=== PATIENT | female | born 1990 | race African-American/Black ===

== ENCOUNTER 2024-06-28 13:26 | Outpatient (CLI) | payer MEDICAID, SELFPAY | END 2024-06-28 13:27 | disposition home or self-care (01) | PROVIDERS: Visit Provider Registered Nurse | DX: Z34.92 Encounter for supervision of normal pregnancy, unspecified, second trimester (principal); Z3A.17 17 weeks gestation of pregnancy | CPT/HCPCS: 86762; 86787 ==

== ENCOUNTER 2024-07-18 13:36 | Outpatient (CLI) | payer MEDICAID, SELFPAY ==
--- NOTE | 2024-07-18 14:00 | CRLHL7_ITS ---
For Patients: As a result of the Century Cures Act, medical imaging exams and procedure reports are released immediately into your electronic medical record. You may view this report before your referring provider. If you have questions, please contact your health care provider. OBSTETRICAL ULTRASOUND 07/18/2024 VIC by LMP: 12/02/2024. GA: 20 w, 3 d. INDICATION: anatomy. TECHNIQUE: Real time clemons scale imaging of the fetus was performed. Transvaginal. Position: Vertex. Cervix: Visualized. Technique: Transvaginal. Length of closed cervix: 3.9 cm. Placenta/cord: Posterior, Right Wall. Technique: Transvaginal. Placenta tip to internal OS: 3.4 cm. Placenta insertion: Central. Amniotic Fluid: 5.4cm SDP (greater than/equal to: 2- less than 8 cm). SURVEY: Observed Structures. Cerebellum: 2.3 cm, 22 w 3 d. Cisterna Magna: 6.6 mm. Nuchal Fold: 3.5 mm. Lateral Ventricle: 8.0 mm. CSP: Yes. Midline Falx: Yes. Choroid Plexus: Yes. Spine: C-spine (see comments) Abdomen: Stomach: Yes. Abd Cord Insertion: Yes. Urinary Bladder: (see comments) Kidneys: Yes. Diaphragm: Yes. Face: Nose/lips: Yes. Orbital view: Yes. Profile: Yes. Limbs: Upper Extremities: Yes. Lower Extremities: Yes. Hands: Yes. Feet: Yes. Vascular: 4-Chamber Heart: Yes. LVOT: Yes. RVOT: Yes. 3VV: Yes. 3VTV: Yes. BPD: 5.4 cm. 22 w, 3 d, >97 percent. HC: 19.8 cm. 22 w, 0 d, 93.8 percent. AC: 16.4 cm. 21 w, 3 d, 75.5 percent. FL: 3.8 cm. 22 w, 0 d, 88.2 percent. FL/AC ratio: 22.97 percent. HC/AC ratio: 1.21. heart rate: 131 bpm. age by this US: 22 w, 0 d. VIC by this US: 11/21/2024. EFW: 445.79 g. Weight: 1 lbs, 0 oz. Percentile by VIC: >97 percent. TECH COMMENTS: Suboptimal C-spine. 3VC and bladder not documented today. Very difficult exam due to positioning. EFW >97%. IMPRESSION: 1. Sonographic gestational age 22 weeks 0 days and sonographic due date 11/21/2024. Sonographic age 11 days ahead of the clinical age. 2. Estimated weight greater than 97th percentile. Abdominal circumference 76 percent. Biparietal diameter greater than 97th percentile. 3. Incomplete visualization of the cervical spine, umbilical cord and urinary bladder. Remainder of the anatomic survey is normal given limitations of position. Short-term follow-up recommended in 1-2 weeks. Don Blanchard M.D. Diagnostic Radiologist [email or web address] DOT/lilli DW/Dictated by: Don Blanchard MD @ 07/20/2024 6:49:00 AM (Electronically Signed)
== END 2024-07-18 13:37 | disposition home or self-care (01) ==
LOC: US 13:37
PROVIDERS: Visit Provider Registered Nurse
DX: Z34.92 Encounter for supervision of normal pregnancy, unspecified, second trimester (principal); Z3A.22 22 weeks gestation of pregnancy
CPT/HCPCS: 76805; 76817

== ENCOUNTER 2024-08-01 12:33 | Outpatient (CLI) | payer MEDICAID, SELFPAY ==
--- NOTE | 2024-08-01 13:00 | CRLHL7_ITS ---
For Patients: As a result of the Cures Act, medical imaging exams and procedure reports are released immediately into your electronic medical record. You may view this report before your referring provider. If you have questions, please contact your health care provider. OB ULTRASOUND VIC by LMP: 12/02/2024. GA: 22 w, 3 d. Single. Comparison: 07/18/2024. INDICATION: Follow-up missing views (three-vessel cord, bladder, cervical spine). TECHNIQUE: Real time grayscale imaging of the fetus was performed. Transabdominal. CERVIX: Not visualized. POSITIONING: Vertex. AMNIOTIC FLUID: 4.7 cm SDP (N: greater than 2 x 1 cm) PLACENTA: Technique: Transabdominal. PLACENTA POSITION: Posterior, right wall. DOPPLER: heart rate: 149 bpm. IMPRESSION: Normal three-vessel cord, bladder, and spine. In conjunction with the prior study, the anatomic survey is normal. Don Blanchard M.D. Diagnostic Radiologist [email or web address] DOT/mariana peña/Dictated by: Don Blanchard MD @ 08/02/2024 10:14:00 AM (Electronically Signed)
== END 2024-08-01 12:34 | disposition home or self-care (01) ==
LOC: US 12:34
PROVIDERS: Visit Provider Advanced Practice Midwife
DX: Z36.2 Encounter for other antenatal screening follow-up (principal); Z3A.22 22 weeks gestation of pregnancy
CPT/HCPCS: 76816

== ENCOUNTER 2024-09-11 13:32 | Outpatient (CLI) | payer MEDICAID, SELFPAY | END 2024-09-11 13:33 | disposition home or self-care (01) | LOC: NFLDREF 09-15 07:06 | PROVIDERS: PCP Emergency Medicine; Referring Provider Emergency Medicine; Visit Provider Midwife | DX: Z34.93 Encounter for supervision of normal pregnancy, unspecified, third trimester (principal); Z3A.28 28 weeks gestation of pregnancy | CPT/HCPCS: 86592 ==

== ENCOUNTER 2024-09-12 14:51 | Outpatient (CLI) | payer MEDICAID, SELFPAY ==
--- NOTE | 2024-09-12 15:45 | CRLHL7_ITS ---
For Patients: As a result of the Century Cures Act, medical imaging exams and procedure reports are released immediately into your electronic medical record. You may view this report before your referring provider. If you have questions, please contact your health care provider. OB ULTRASOUND VIC by LMP: 12/02/2024. GA: 28 w, 3 d. Single. Comparison: 08/01/2024, 07/18/2024. INDICATION: Measuring large for date. TECHNIQUE: Real time grayscale imaging of the fetus was performed. Transabdominal. CERVIX: Not visualized. POSITIONING: Vertex. AMNIOTIC FLUID: 4.8 cm. SDP (N: greater than 2 x 1 cm) PLACENTA: Technique: Transabdominal. PLACENTA POSITION: Not provided. DOPPLER: heart rate: 147 bpm. BIOMETRY: BPD: 7.9 cm. 31 w, 5 d, >97 percent. HC: 29.3 cm. 32 w, 2 d, >97 percent. AC: 27.5 cm. 31 w, 4 d, >97 percent. FL: 5.5 cm. 29 w, 0 d, 53.8 percent. FL/AC ratio: 20.03 percent. HC/AC ratio: 1.07. EFW: 1660 g. Weight: 3 lbs, 11 oz. age by this US: 31 w, 1 d. VIC by this US: 11/13/2024. Percentile by VIC: >97 percent. IMPRESSION: 1. Sonographic gestational age 31 weeks 1 day and sonographic due date 11/13/2024. Sonographic age is 19 days ahead of the clinical age. 2. Estimated weight greater than 97th percentile. Biparietal diameter, head circumference, and abdominal circumference all greater than 97th percentile. Don Blanchard M.D. Diagnostic Radiologist [email or web address] DOT/mariana peña/Dictated by: Don Blanchard MD @ 09/12/2024 4:11:00 PM (Electronically Signed)
== END 2024-09-12 14:52 | disposition home or self-care (01) ==
LOC: US 14:52
PROVIDERS: PCP Emergency Medicine; Visit Provider Advanced Practice Midwife
DX: O36.63X0 Maternal care for excessive fetal growth, third trimester, not applicable or unspecified (principal); Z3A.28 28 weeks gestation of pregnancy
CPT/HCPCS: 76816

== ENCOUNTER 2024-09-24 11:22 | Outpatient (RCR) | payer MEDICAID, SELFPAY ==
--- NOTE | 2024-09-12 12:33 | URNOTE ---
Prior auth is not required for Infed ([id number]) per [facility]'s Medical Injectable Drug list.
--- NOTE | 2024-09-12 14:23 | URNOTE ---
Diagnosis: Iron deficiency anemia in
[2024-09-24 11:34] VITALS: BP 127/68; PULSE 98; RESP 20; TEMP 35.8; O2SAT 99
[2024-09-24] MEDS: SODIUM CHLORIDE 0.9 % (FLUSH) 10 ML SYRINGE IVF (12:00)
[2024-09-24] MEDS: IRON DEXTRAN COMPLEX 25 MG in 0.9 % SODIUM CHLORIDE 100 ml 100 ML 402 MG IVPB (12:18)
[2024-09-24 12:40] VITALS: BP 106/62; PULSE 91; RESP 14; O2SAT 97
[2024-09-24] MEDS: IRON DEXTRAN COMPLEX 975 MG in 0.9 % SODIUM CHLORIDE 250 ml 250 ML 270 MG IVPB (13:17)
== END 2025-03-23 23:59 | disposition home or self-care (01) ==
LOC: CCIC 11:22
PROVIDERS: PCP Emergency Medicine; Referring Provider Emergency Medicine; Visit Provider Clinical Nurse Specialist
DX: O99.013 Anemia complicating pregnancy, third trimester (principal); D50.9 Iron deficiency anemia, unspecified
CPT/HCPCS: 96365; 96366; J1750; J7050

== ENCOUNTER 2024-10-08 12:05 | Outpatient (CLI) | payer MEDICAID, SELFPAY ==
--- NOTE | 2024-10-08 12:15 | CRLHL7_ITS ---
For Patients: As a result of the Century Cures Act, medical imaging exams and procedure reports are released immediately into your electronic medical record. You may view this report before your referring provider. If you have questions, please contact your health care provider. OBSTETRICAL ULTRASOUND ??? FOLLOW-UP, 10/08/2024 INDICATION: Elevated BMI. CLINICAL HISTORY: VIC by LMP: 12/02/2024 Gestational Age: 32 weeks 1 day COMPARISON: 09/12/2024, 08/01/2024, 07/18/2024 TECHNIQUE: Real-time clemons-scale transabdominal imaging of the fetus was performed. FINDINGS: Fetus: Single Cervix: Not visualized positioning: Vertex Amniotic Fluid: 7.0 cm SDP Placenta technique: Transabdominal Placenta position: Posterior, right wall heart rate: 125 bpm BIOMETRY: BPD: 8.7 cm, 35 weeks 0 days, greater than 97% HC: 31.4 cm, 35 weeks 1 day, 87.7% AC: 28.4 cm, 32 weeks 3 days, 58.3% FL: 6.5 cm, 33 weeks 3 days, 73.4% FL/AC Ratio: 22.84% HC/AC ratio: 1.10 EFW: 2153 grams; 4 lbs. 12 oz. age by this ultrasound: 34 weeks 0 days VIC by this ultrasound: 11/19/2024 Percentile by VIC: 75.1% TIRE BALANCER COMMENTS: Very difficult to obtain BPD, HC and AC due to positioning. Bilateral renal pelvis measured and within normal limits. IMPRESSION: 1. Sonographic gestational age 34 weeks 0 days and sonographic due date 11/19/2024. Sonographic age is 13 days ahead of the clinical age. 2. Estimated weight is 75th percentile. Abdominal circumference is 58th percentile. BPD is greater than 97th percentile. 3. Right renal pelvis measures 5 mm and left renal pelvis measures 2 mm, considered within normal limits. DON OROSCO M.D. Diagnostic Radiologist [email or web address] Transcribed: 4:[address]/Dictated by: Don Orosco MD @ 10/08/2024 4:05:00 PM (Electronically Signed)
== END 2024-10-08 12:06 | disposition home or self-care (01) ==
LOC: US 12:06
PROVIDERS: PCP Emergency Medicine; Visit Provider Midwife
DX: O99.213 Obesity complicating pregnancy, third trimester (principal); O36.63X0 Maternal care for excessive fetal growth, third trimester, not applicable or unspecified; Z3A.32 32 weeks gestation of pregnancy
CPT/HCPCS: 76816

== ENCOUNTER 2024-10-22 14:10 | Outpatient (CLI) | payer MEDICAID, SELFPAY | END 2024-10-22 14:11 | disposition home or self-care (01) | LOC: NFLDREF 10-25 04:19 | PROVIDERS: PCP Emergency Medicine; Referring Provider Emergency Medicine; Visit Provider Midwife | DX: O09.93 Supervision of high risk pregnancy, unspecified, third trimester (principal); Z3A.34 34 weeks gestation of pregnancy | CPT/HCPCS: 82728 ==

== ENCOUNTER 2024-11-05 12:53 | Outpatient (CLI) | payer MEDICAID, SELFPAY ==
--- NOTE | 2024-11-05 13:00 | CRLHL7_ITS ---
For Patients: As a result of the Century Cures Act, medical imaging exams and procedure reports are released immediately into your electronic medical record. You may view this report before your referring provider. If you have questions, please contact your health care provider. OB ULTRASOUND LMP: 02/26/2024. VIC by LMP: 12/02/2024. GA: 36 w, 1 d. Single. Comparison: 10/08/2024, 09/12/2024, 08/01/2024. INDICATION: Elevated BMI. TECHNIQUE: Real time grayscale imaging of the fetus was performed. Transabdominal. CERVIX: Not visualized. POSITIONING: Vertex. AMNIOTIC FLUID: 4.1 cm. SDP (N: greater than 2 x 1 cm) PLACENTA: Technique: Transabdominal. PLACENTA POSITION: Right wall. DOPPLER: heart rate: 152 bpm. BIOMETRY: BPD: 9.4 cm. 38 w, 0 d, 95 percent. HC: 34.4 cm. 39 w, 5 d, 94 percent. AC: 34.4 cm. 38 w, 2 d, >97 percent. FL: 6.9 cm. 35 w, 2 d, 25 percent. FL/AC ratio: 20.0 percent. HC/AC ratio: 1.0. EFW: 326 g. Weight: 7 lbs, 4 oz. age by this US: 37 w, 6 d. VIC by this US: 11/20/2024. Percentile by VIC: 89.4 percent. IMPRESSION: 1. Sonographic gestational age 37 weeks 6 days and sonographic due date 11/20/2024. Sonographic age 12 days ahead of the clinical age. 2. Estimated weight 89th percentile. Abdominal circumference greater than 97th percentile. Don Blanchard M.D. Diagnostic Radiologist [email or web address] DOT/mariana peña/Dictated by: Don Blanchard MD @ 11/05/2024 3:48:00 PM (Electronically Signed)
== END 2024-11-05 12:54 | disposition home or self-care (01) ==
LOC: US 12:54
PROVIDERS: PCP Emergency Medicine; Visit Provider Midwife
DX: O99.213 Obesity complicating pregnancy, third trimester (principal); O36.63X0 Maternal care for excessive fetal growth, third trimester, not applicable or unspecified; Z3A.36 36 weeks gestation of pregnancy
CPT/HCPCS: 76816

== ENCOUNTER 2024-11-05 14:22 | Outpatient (CLI) | payer MEDICAID, SELFPAY ==
[2024-11-07 00:02] LABS: Strep B DNA Probe POSITIVE (Negative)
[2024-11-07 01:45] LABS: Strep B Susceptibility Needed? No
== END 2024-11-05 14:23 | disposition home or self-care (01) ==
LOC: NFLDREF 14:22
PROVIDERS: PCP Emergency Medicine; Visit Provider Advanced Practice Midwife
DX: O09.93 Supervision of high risk pregnancy, unspecified, third trimester (principal); Z3A.36 36 weeks gestation of pregnancy
CPT/HCPCS: 87081; 87653

== ENCOUNTER 2024-11-13 13:22 | Outpatient (CLI) | payer MEDICAID, SELFPAY ==
[2024-11-13 13:42] VITALS: BP 122/68; PULSE 77; PULSE 79; O2SAT 100
--- OUTSIDE RECORDS SUMMARY | 2024-11-13 13:43 | XMS_ITS | Encounter Summary ---
Author Organization [facility] Address [address] [place] [address]. [place] [address] Care Team Providers Care Principal Engineer Name Role Phone [place] [facility] Medical Primary Care Provider Masoud Marcano MD Unavailable + [phone] Masoud Marcano MD Unavailable + [phone] Isamar Dobbins APRN MEAT CUTTING BLOCK REPAIRER Unavailable [phone] Masoud Marcano MD Unavailable + [phone] Isamar Dobbins APRN MEAT CUTTING BLOCK REPAIRER Unavailable + [phone] Encounter Details Date Type Department Care Team (Late st Contact Info) Description 05/03/[address] 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 Gender Identity Not on file Sexual Orientation Not on file documented as of this encounter Plan of Treatment Not on file documented as of this encounter Visit Diagnoses Not on filedocumented in this encounter Additional Health Concerns Assessment Noted Time PHQ-9 Depression Total Score: 0 01/03/20 10:31 AM CDT documented as of this encounter Care Teams Principal Engineer Relationship Specialty Start Date End Date Center - [facility] [address] [place] [address] PCP - General Clinic 06/30/16 Masoud Marcano MD [address] [place] [address] PCP - Assigned PCP 11/30/17 07/24/18 Masoud Marcano MD [address] [place] [address] Assigned PCP 11/30/17 12/29/18 Isamar Dobbins APRN MEAT CUTTING BLOCK REPAIRER [address] [place] [address] Assigned PCP 12/30/18 03/16/19 Masoud Marcano MD [address] [place] [address] Assigned PCP 03/17/19 12/26/20 Isamar Dobbins APRN MEAT CUTTING BLOCK REPAIRER [address] [place] [address] Assigned PCP 12/27/20 03/20/21 documented as of this encounter
--- OUTSIDE RECORDS SUMMARY | 2024-11-13 13:43 | XMS_ITS | Clinical Summary ---
Author Organization [facility] Address [address] [place] [address]. [place] [address] Care Team Providers Care Environmental Assistant Name Role Phone [place] [facility] Primary Care Provider Allergies No known active allergies Medications desonide (DESOWEN) 0.05 % ointmentIndicati ons:Eczema, unspecified type Apply sparingly to affected area three times daily as needed. 60 g 8 Active fluticasone (FLOVENT DISKUS) 100 MCG/BLIST AEPBIndications: Moderate persistent asthma without complication Inhale 1 puff into the lungs 2 times daily 1 Inhaler 11 8 Active ibuprofen (ADVIL/MOTRIN) 600 MG tabletIndication s:S/P dilation and curettage,Status post hysteroscopy Take 1 tablet (600 mg) by mouth every 6 hours as needed for other (mild and/or inflammatory pain) 30 tablet 1 8 Active Additional Information Patient not taking.Reported on 04/06/2018 fluticasone (FLOVENT DISKUS) 250 MCG/BLIST AEPB InhalerIndicatio ns:Moderate persistent asthma without complication Inhale 1 puff into the lungs 2 times daily 1 Inhaler 11 8 Active order for DMEIndications:M oderate persistent asthma without complication Equipment being ordered: Nebulizer 1 Units 8 Active albuterol (2.5 MG/3ML) 0.083% neb solutionIndicati ons:Moderate persistent asthma without complication Take 1 vial (2.5 mg) by nebulization every 6 hours as needed for shortness of breath / dyspnea or wheezing 25 vial 11 8 Active predniSONE (DELTASONE) 20 MG tabletIndication s:Moderate persistent asthma without complication Take 1 tablet (20 mg) by mouth daily 5 tablet 8 Active Additional Information Patient not taking.Reported on 04/06/2018 levonorgestrel (MIRENA) 20 MCG/24HR IUDIndications:E ncounter for IUD insertion 1 each (20 mcg) by Intrauterine route continuous 8 Active norgestimate-eth inyl estradiol (ORTHO-CYCLEN, 28,) 0.25-35 MG-MCG per tabletIndication s:Breakthrough bleeding on depo provera Take 1 tablet by mouth daily 84 tablet 2 8 Active albuterol (PROAIR HFA/PROVENTIL HFA/VENTOLIN HFA) 108 (90 Base) MCG/ACT inhalerIndicatio ns:Moderate persistent asthma without complication Inhale 2 puffs into the lungs every 6 hours as needed for shortness of breath / dyspnea or wheezing 1 Inhaler 3 9 Active Active Problems Problem Noted Date Diagnosed Date Mirena IUD 04/06/2018 Overview (04/06/2018): Lot:[id number] Exp: 07/2020 Rachel Newell LPN Moderate persistent asthma without complication 01/01/2018 Iron deficiency anemia secon brian to inadequate dietary iron intake 06/02/2016 Resolved Problems Problem Noted Date Diagnosed Date Resolved Date (spontaneous vaginal delivery) 11/20/2016 08/07/2017 Encounter for triage in patient 11/12/2016 08/07/2017 Pain in symphysis pubis during 09/15/2016 02/06/2017 Abnormal ultrasound 07/01/2016 History of 06/02/2016 018 Overview (10/25/2016): History of History of f-[id number] Records reviewed and scanned: LOW TRANSVERSE SECTION confirmed approved by [facility] care, subsequent 05/25/2016 08/07/2017 Overview (10/06/2016): 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, 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, cell free DNA normal, declined amniocentesis Immunizations Immunization Administration Dates Next Due Influenza Vaccine >6 months,quad, PF 06/02/2016 MMR (MMRII) 11/21/2016 TDAP Vaccine (Adacel) 09/08/2016 Family History Medical History Relation Comments Diabetes Father Diabetes Paternal Grandmother Relation Status Comments Daughter 1 Alive Daughter 2 Alive Father Maternal Grandfather Paternal Grandmother Social History Tobacco Use Types Packs/Day Years Used Date Smoking Tobacco: Never Smokeless Tobacco: Never Tobacco Cessation:Counseling Given: No Alcohol Use Standard Drinks/Week Comments No 0 (1 standard drink = 0.6 oz pur e alcohol) PHQ-2 Answer Date Recorded PHQ-2 Score 0 02/09/2018 Adolescent Education Answer Date Record ed Getting School Help Needed Not on file 10/12 Comments No Sex and Gender Information Value Date Recorded Sex Assigned at Not on file Legal 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 Gender Identity Not on file Sexual Orientation Not on file Last Filed Vital Signs Vital Sign Reading Time Taken Comments Blood Pressure 160/101 10/13/2023 8:18 AM CDT Pulse 82 10/13/2023 8:18 AM CDT Temperature 37 C (98.6 F) 10/13/2023 8:18 AM CDT Respiratory Rate 16 10/13/2023 8:18 AM CDT Oxygen Saturation 100% 10/13/2023 8:18 AM CDT Inhaled Oxygen Concentration - - Weight 95.1 kg (209 lb 9.6 oz) 04/06/2018 4:04 P M DOT ETCHER Height 175.3 cm (5' 9) 05/09/2018 1:36 AM DOT ETCHER Body Mass Index 30.95 04/06/2018 4:04 PM DOT ETCHER Plan of Treatment Health Maintenance Due Date Last Done Comments ADVANCE CARE PLANNING 1990 ANNUAL REVIEW OF HM ORDERS 1990 HEPATITIS C SCREENING 2008 HEPATITIS B VACCINE (1 of 3 - 19+ 3-dose series) 2009 PNEUMOCOCCAL VACCINE: PEDIATRICS (0 to 5 YEARS) AND AT-RISK PATIENTS (6 to 49 YEARS) (1 of 2 - PCV) 2009 ASTHMA CONTROL TEST 06/27/2018 12/25/2017, 12/25/2017, 10/10/2017, Additional history exists ASTHMA ACTION PLAN 03/26/2019 03/26/2018 YEARLY PREVENTIVE VISIT 06/10/2021 06/10/19, 01/25/2019, 09/06/2018 PAP 06/10/2023 06/10/2020, 03/0 09/2019, 06/02/2016 COVID-19 VACCINE ( season) 2024 06/01/2021, 10/05/2020, 09/02/2020 PHQ-2 (once per calendar year) 2024 02/09/2018, 01/02/2017 INFLUENZA VACCINE (Season Ended) 2025 06/02/2016 DTAP/TDAP/TD VACCINE (2 - Td or Tdap) 09/08/2026 09/08/2016 ZOSTER VACCINE (1 of 2) 2040 HIV SCREENING Completed 06/02/2016 HPV VACCINE Aged Out No longer eligi ble based on patient's age to complete this topic MENINGITIS VACCINE Aged Out No longer eligible based on patient's age to complete this topic Procedures Procedure Name Priority Date/Time Associated Diagnosis Comments HIV ANTIGEN ANTIBODY COMBO Routine 06/02/2016 10:24 AM DOT ETCHER care, subsequent , second trimester PAP IMAGED THIN LAYER SCREEN Routine 06/02/2016 12:00 AM DOT ETCHER care, subsequent , second trimester from Last 3 Months or Most Recently Relevant to Health Maintenance Results * HIV Antigen Antibody Combo (06/02/2016 10:24 AM DOT ETCHER) HIV Antigen Antibody Combo Nonreactive HIV-1 p24 Ag & HIV-1/HIV-2 Ab Not Detected NR [facility] Blood specimen (specimen) 06/02/2016 10:24 AM DOT ETCHER 06/02/2016 10:26 AM DOT ETCHER us Nicolette Yu MD LAB - BLOOD OR DERABLES Final Result [facility] [address] [place] [address] * Pap imaged thin layer screen reflex to HPV if ASCUS - recommend age 25 - 29 (06/02/2016 12:00 AM DOT ETCHER) PRABHA Carbajal Report Patient Name: ZULEMA BROWNING MR#: [id number] Specimen #: [id number] Collected: 06/02/2016 Received: 06/02/2016 Reported: 06/05/2016 10:27 Ordering Phy(s): NICOLETTE YU For improved result formatting, select 'View Enhanced Report Format' under Linked Documents section. SPECIMEN/STAIN PROCESS: Pap imaged thin layer prep screening (Surepath, FocalPoint with guided screening) Pap-Cyto x 1, Pap with reflex to HPV if ASCUS x 1 SOURCE: Cervical, endocervical Pap imaged thin layer prep screening (Surepath, FocalPoint with guided screening) SPECIMEN ADEQUACY: Satisfactory for evaluation. -Transformation zone component present. CYTOLOGIC INTERPRETATION: Negative for Intraepithelial Lesion or Malignancy Electronically signed out by: STEPHANE Cain (ASCP) Processed and screened at [facility] CLINICAL HISTORY: LMP: 02/22/2016 , Papanicolaou Test Limitations: Cervical cytology is a screening test with limited sensitivity; regular screening is critical for cancer prevention; Pap tests are primarily effective for the diagnosis/preventi on of squamous cell carcinoma, not adenocarcinomas or other cancers. TESTING LAB LOCATION: [address] [phone] COLLECTION SITE: Client: Psychiatric Location: [facility]ILA CARBAJAL (K) Cytologic material (specimen) 06/02/2016 06/02/2016 1:56 PM DOT ETCHER us Nicolette Yu MD LAB - OPTIME C LINICAL SPECIMEN Final Result [facility] from Last 3 Months or Most Recently Relevant to Health Maintenance Insurance [facility] Care Teams Environmental Assistant Relationship Specialty Start Date End Date [facility] [address] [place] [address] PCP - General Clinic 06/30/16
--- OUTSIDE RECORDS SUMMARY | 2024-11-13 13:43 | XMS_ITS | Clinical Summary ---
Author Organization [facility] Address [address], [place] [address] Care Team Providers Care Mixer Operator Name Role Phone Unavailable Primary Care Provider Unavailabl e Source Comments You are receiving this document as you are listed as the primary care provider,follow-up provider, or the patient has been referred to you for consultation.This is in compliance with the Medicare and[facility] EHR Incentive Program,which states Providers who transition their patient to another setting of careor provider of care or refers their patient to another provider of care shouldprovide summary care record for each transition of care or referral. [email or web address] Allergies No known active allergies Medications naproxen (NAPROSYN) 500 MG tabletIndication s:Acute bilateral low back pain without sciatica Take 1 Tablet (500 mg) by mouth two times daily as needed. 60 Tablet 1 2 Active Additional Information Patient not taking.Reported on 04/09/2024 cyclobenzaprine (FLEXERIL) 10 MG tabletIndication s:Acute bilateral low back pain without sciatica TAKE 0.5-1 TABLETS (5-10 MG) BY MOUTH AT BEDTIME NEEDED. 30 Tablet 2 Active Additional Information Patient not taking.Reported on 04/09/2024 fluocinolone (DERMA-SMOOTHE) 0.01 % body oilIndications:F lexural atopic dermatitis Apply topically daily as needed for Dermatitis. 118 mL 11 3 Active triamcinolone acetonide (KENALOG) 0.1 % creamIndications :Flexural atopic dermatitis Apply topically two times a day. 80 g 1 3 Active desonide (DESOWEN) 0.05 % creamIndications :Rash Apply topically two times a day. As needed to rash on face. 30 g 11 3 Active tacrolimus (PROTOPIC) 0.03 % ointmentIndicati ons:Rash Apply topically two times a day. As needed to rash on face. 30 g 11 3 Active mupirocin (BACTROBAN) 2 % ointmentIndicati ons:Skin infection Apply topically two times a day. 22 g 3 Active Additional Information Patient not taking.Reported on 04/26/2024 mometasone-formo terol (DULERA) 100-5 mcg/actuation inhaler Inhale 2 Puffs two times a day. Inhale 2 Puffs two times a day. May also use 1-2 puffs qid prn cough, shortness of breath, or wheezing. Per NHLBI guidelines Dulera or Symbicort required. Rise mouth and gargle after use. 2 Each 5 3 Active Additional Information Patient not taking.Reported on 04/09/2024 montelukast (SINGULAIR) 10 MG tabletIndication s:Moderate persistent asthma without complication (HRC) Take 1 Tablet (10 mg) by mouth every evening. 90 Tablet 3 3 Active Additional Information Patient not taking.Reported on 04/09/2024 methylPREDNISolo ne (MEDROL 21 TABLET DOSEPACK) 4 MG tabletIndication s:Acute bilateral low back pain, unspecified whether sciatica present Follow package directions 21 Tablet 4 Active Additional Information Patient not taking.Reported on 04/09/2024 cyclobenzaprine (FLEXERIL) 10 MG tabletIndication s:Acute bilateral low back pain, unspecified whether sciatica present Take 1 Tablet (10 mg) by mouth three times a day as needed for Muscle Spasms. 30 Tablet 4 Active Additional Information Patient not taking.Reported on 04/09/2024 cetirizine (ZYRTEC) 10 MG tabletIndication s:Moderate persistent asthma without complication (HRC) Take 1 Tablet (10 mg) by mouth daily. 90 Tablet 3 4 Active ALBUterol sulfate HFA 108 (90 Base) MCG/ACT inhaler Inhale 1-2 Puffs every 4 hours as needed for Wheezing. 18 g 2 4 Active albuterol 2.5 mg/3 mL, 0.083%, (PROVENTIL) nebulizer solutionIndicati ons:Moderate persistent asthma without complication (HRC) Inhale 1 vial (3 ml) in nebulizer every 6 hours as needed 90 mL 2 4 Active Additional Information Patient not taking.Reported on 04/09/2024 Vit-DSS-Fe Fum-FA ( 19) Active ferrous sulfate 325 (65 Fe) MG tabletIndication s:Anemia affecting , antepartum Take 1 Tablet (325 mg) by mouth two times a day with meals. Do not take at the same time as taking vitamin. 90 Tablet 3 4 Active aspirin EC 81 MG enteric coated tablet Take 1 Tablet (81 mg) by mouth daily. 90 Tablet 1 4 025 Active Problems Problem Noted Date Diagnosed Date Anemia affecting , antepartum 4 Fibroid 04/26/2024 Overview (04/26/2024): 2.7 cm posterior intramural fibroid. High risk , antepartum 04/25/2024 History of delivery, currently 04/25/2024 Atypical squamous cells of u ndetermined significance on cytologic smear of cervix (ASC-US) 11/16/2023 Overview (11/16/2023): [facility] Review: History: 09/2023: ASCUS HPV neg Plan, per ASCCP guidelines: Repeat co-test in 3 years (2026) Flexural atopic dermatitis 06/10/2020 History of iron deficiency 06/10/2020 Moderate persistent asthma without complication 01/01/2018 Estimated Date of Delivery Comme nts Yes 12/02/2024 Based on last me nstrual period of 02/26/2024 (Exact Date) Resolved Problems Problem Noted Date Diagnosed Date Resolved Date Iron deficiency anemia secon brian to inadequate dietary iron intake 06/02/2016 1 Immunizations Immunization Administration Dates Next Due Influenza IIV4 (Quadrivalent) 0.5mL (98452) 05/22 MMR 11/21/2016 Moderna Monovalent 12+ 06/01/2021,10/05/2020, Tdap 09/08/2016 Family History Medical History Relation Name Comments Diabetes Father Diabetes, Type II Father No Known Problems Mother No Known Problems Daughter 1 Coco No Known Problems Daughter 2 Melinda No Known Problems Daughter 3 Dianna Unknown Maternal Grandfather Unknown Maternal Grandmother Unknown Paternal Grandfather Diabetes Paternal Grandmother No Known Problems Sister x3 Relation Name Status Comments Father Alive Mother Alive Daughter 1 Coco Alive Daughter 2 Melinda Alive Daughter 3 Dianna Alive Maternal Grandfather Maternal Grandmother Alive Paternal Grandfather Paternal Grandmother Alive Sister x3 Alive Social History Tobacco Use Types Packs/Day Years Used Date Smoking Tobacco: Never Smokeless Tobacco: Never Tobacco Cessation:Counseling Given: Not Answered Alcohol Use Standard Drinks/Week Comments Never 0 (1 standard drink = 0.6 oz pur e alcohol) PHQ-2 Answer Date Recorded PHQ-2 Score 0 03/28/2023 Financial Resource Strain Answer Date R ecorded Is it hard for you to pay fo r the very basics like food, housing, medical care or heating? No 03/28/2023 Food Insecurity Answer Date Recorded Does your food run out before you have the money to buy more? No 03/28/2023 Transportation Needs Answer Date Record ed Does a lack of transportatio n keep you from your medical appointments or from getting your medications? 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 Not on file Not on file Not on file Last Filed Vital Signs Vital Sign Reading Time Taken Comments Blood Pressure 135/67 05/31/2024 3:00 PM DISHING MACHINE OPERATOR Pulse 88 05/31/2024 3:00 PM DISHING MACHINE OPERATOR Temperature 36.8 C (98.3 F) 09/18/2023 3:24 PM CDT Respiratory Rate 18 03/29/2024 5:08 PM DISHING MACHINE OPERATOR Oxygen Saturation 100% 03/29/2024 5:08 PM DISHING MACHINE OPERATOR Inhaled Oxygen Concentration - - Weight 118.4 kg (261 lb) 05/31/2024 3:00 PM DISHING MACHINE OPERATOR Height 175.3 cm (5' 9) 04/26/2024 10:10 AM DISHING MACHINE OPERATOR Body Mass Index 38.54 04/26/2024 10:10 AM DISHING MACHINE OPERATOR Plan of Treatment Health Maintenance Due Date Last Done Comments HepB Vaccine (1) 2009 Pneumococcal Vaccine (1 of 2 - PCV) 2009 Asthma ACT (score of 20 or higher) 09/01/2022 09/01/2021, 06/10/2020 COVID-19 Vaccine (4 - 2023-2 5 season) 2024 06/01/2021, 10/05/2020, 09/02/2020 Influenza Vaccine (Season Ended) 2025 06/02/2016 Adult Preventive Visit 10/19/2025 , 06/10/2020 DTaP/Tdap/Td Vaccine (2 - Tdap) 09/08/2026 09/08/2016 Cervical Cancer Screening 10/19/20262023, 10/20/2023, 06/10/2020 Zoster/Shingles Vaccine (1 o f 2) 2040 HIV Screening (Preventive Services) Completed 04/26/2024, 10/20/2023 Hep C Screening (Preventive Services) Completed 04/26/2024, 10/20/2023 HPV Vaccine Aged Out No longer eligi ble based on patient's age to complete this topic HepA Vaccine Aged Out No longer eligi ble based on patient's age to complete this topic Hib Vaccine Aged Out No longer eligi ble based on patient's age to complete this topic IPV (Polio) Vaccine Aged Out No longe r eligible based on patient's age to complete this topic MCV4 Vaccine Aged Out No longer eligi ble based on patient's age to complete this topic Meningococcal B Vaccine Aged Out No l onger eligible based on patient's age to complete this topic Procedures Procedure Name Priority Date/Time Associated Diagnosis Comments HIV 1/2 AG/AB 4TH GEN Routine 04/26/2024 11:06 AM DISHING MACHINE OPERATOR High risk , antepartum HEPATITIS C ANTIBODY, WITH REFLEX (ANTI-HCV) Routine 04/26/2024 11:06 AM DISHING MACHINE OPERATOR High risk , antepartum CYTOLOGY (PAP) Routine 10/20/2023 3:27 PM CDT Screening for malignant neoplasm of cervix from Last 3 Months or Most Recently Relevant to Health Maintenance Results * HIV 1/2 Ag/Ab 4th Generation (04/26/2024 11:06 AM DISHING MACHINE OPERATOR) HIV 1/2 Antigen/Antib emilie (4th generation) Negative (Non Reactive) Negative (Non Reactive) 04/26/2024 4:48 PM DISHING MACHINE OPERATOR [facility] Comment:HIV-1 p24 Antigen an d HIV-1/HIV-2 Antibody not detected Blood Venipuncture / Unknown 04/26/2024 11:06 AM DISHING MACHINE OPERATOR 04/26/2024 11:06 AM DISHING MACHINE OPERATOR Kassy Gu APRN, CARIE LAB_1 Final Result Performing Organization Address [facility] Phone Number [facility] [address] [place] [address] * Hepatitis C Antibody, with Reflex (04/26/2024 11:06 AM DISHING MACHINE OPERATOR) Hepatitis C Antibody Negative (Non Reactive) Negative (Non Reactive) 04/26/2024 4:48 PM DISHING MACHINE OPERATOR [facility] Comment:Antibodies to HCV no t detected. Does not exclude the possiblity of exposure to HCV. Blood Venipuncture / Unknown 04/26/2024 11:06 AM DISHING MACHINE OPERATOR 04/26/2024 11:06 AM DISHING MACHINE OPERATOR us Kassy Gu APRN, CNM LAB_1 Final Result Performing Organization Address [facility] de Phone Number [facility] [address] [place] [address], [place] * (ABNORMAL) PAP Test (10/20/2023 3:27 PM CDT) Case Report Pap Case: [id number] Authorizing Provider: Sarahy Bennett APRN, Collected: 10/20/2023 1527 KENO WRITER / RUNNER Ordering Location: [facility] Received: 10/20/2023 1535 Services-LONG WALL MINING MACHINE TENDER First Screen: Eun Jones CT (ASCP) Pathologist: Syd Irving MD Specimen: Pap Test, Routine, Cervix/Endocerv ix 11/16/2023 10:20 AM CDT [facility] Pap Specimen Adequacy Satisfactory for evaluation, endocervical/tr ansformation zone component present. 11/16/2023 10:20 AM CDT [facility] Pap Interpretation (ASC-US) Atypical squamous cells of undetermined significance.(A ) 11/16/2023 10:20 AM CDT [facility] at 1020 CDT Pap Disclaimer The Pap test is a screening test to aid in the detection of cervical and vaginal cancers and their precursor lesions. It is not a diagnostic procedure and should not be used as the sole means of detecting malignancy. Both false-positive and false-negative results may occur. 11/16/2023 10:20 AM CDT [facility] Gross Description The specimen is received in SurePath fixative and properly labeled. 1 Pap-stained SurePath slide is prepared. 11/16/2023 10:20 AM CDT [facility] Embedded Images 10:20 AM CDT [facility] Other Specimen Type ENTIRE ENDOCERVIX / Unknown 10/20/2023 3:27 PM CDT 10/20/2023 3:35 PM CDT Comment:LMP: Patient's last menstrual period was 09/02/2023. Sarahy Bennett APRN, KENO WRITER / RUNNER LAB PATHOLOGY Final Result [facility] [address] from Last 3 Months or Most Recently Relevant to Health Maintenance Insurance [facility] * Guarantor: [id number] Account Type Relation to Patient Date of Phone Billing Address [employer] 1990 [id number] [place] [address] Jimenez JUNIOR
--- OUTSIDE RECORDS SUMMARY | 2024-11-13 13:43 | XMS_ITS | Encounter Summary ---
Author Organization [facility] Address [address] [place] [address]. [place] [address] Care Team Providers Care Oil Processing Technician Name Role Phone [place] [facility] Primary Care Provider Masoud Marcano MD Unavailable + [phone] Masoud Marcano MD Unavailable + [phone] Isamar Dobbins APRN RESIDENTIAL REAL ESTATE SALES MANAGER Unavailable [phone] Masoud Marcano MD Unavailable + [phone] Isamar Dobbins APRN RESIDENTIAL REAL ESTATE SALES MANAGER Unavailable + [phone] Encounter Details Date Type Department Care Team (Late st Contact Info) Description 04/08/2018 My[facility] Medical Advice [facility] building supervisor Clinic [place] [address] [facility] [address] [place] [address] Yanique Linares MD [address] [place] [address] Social History Tobacco Use Types Packs/Day Years Used Date Smoking Tobacco: Never Smokeless Tobacco: Never Alcohol Use Standard Drinks/Week Comments No 0 (1 standard drink = 0.6 oz pur e alcohol) PHQ-2 Answer Date Recorded PHQ-2 Score 0 02/09/2018 Comments No Sex and Gender Information Value Date Recorded Sex Assigned at Not on file Legal Sex Female 11:19 PM ON CALL PHARMACY TECHNICIAN Gender Identity Not on file Sexual Orientation Not on file documented as of this encounter Plan of Treatment Not on file documented as of this encounter Visit Diagnoses Not on filedocumented in this encounter Additional Health Concerns Assessment Noted Time PHQ-9 Depression Total Score: 0 01/03/20 10:31 AM CDT documented as of this encounter Care Teams Oil Processing Technician Relationship Specialty Start Date End Date Center - [facility] [address] [place] [address] PCP - General Clinic 06/30/16 Masoud Marcano MD [address] [place] [address] PCP - Assigned PCP 11/30/17 07/24/18 Masoud Marcano MD [address] [place] [address] Assigned PCP 11/30/17 12/29/18 Isamar Dobbins APRN RESIDENTIAL REAL ESTATE SALES MANAGER [address] [place] [address] Assigned PCP 12/30/18 03/16/19 Masoud Marcano MD [address] [place] [address] Assigned PCP 03/17/19 12/26/20 Isamar Dobbins APRN RESIDENTIAL REAL ESTATE SALES MANAGER [address] [place] [address] Assigned PCP 12/27/20 03/20/21 documented as of this encounter
--- OUTSIDE RECORDS SUMMARY | 2024-11-13 13:43 | XMS_ITS | Encounter Summary ---
Author Organization [facility] Address [address] [place] [address]. [place] [address] Care Team Providers Care Hone Operator Name Role Phone [place] [facility] Primary Care Provider Masoud Marcano MD Unavailable + [phone] Masoud Marcano MD Unavailable + [phone] Isamar Dobbins APRN EDUCATION PROGRAM ASSOCIATE Unavailable [phone] Masoud Marcano MD Unavailable + [phone] Isamar Dobbins APRN EDUCATION PROGRAM ASSOCIATE Unavailable + [phone] Encounter Details Date Type Department Care Team (Late st Contact Info) Description 02/19/2018 MyC Medical Advice [facility] painter spray Clinic [place] [address] [facility] [address] [place] [address] Trevor Leiva MD [address] [place] [address] Social History Tobacco Use Types Packs/Day Years Used Date Smoking Tobacco: Never Smokeless Tobacco: Never Alcohol Use Standard Drinks/Week Comments No 0 (1 standard drink = 0.6 oz pur e alcohol) PHQ-2 Answer Date Recorded PHQ-2 Score 0 02/09/2018 Comments No Sex and Gender Information Value Date Recorded Sex Assigned at Not on file Legal Sex Female 11:19 PM ENTRY LEVEL PROJECT COORDINATOR Gender Identity Not on file Sexual Orientation Not on file documented as of this encounter Plan of Treatment Not on file documented as of this encounter Visit Diagnoses Not on filedocumented in this encounter Additional Health Concerns Assessment Noted Time PHQ-9 Depression Total Score: 0 01/03/20 17 10:31 AM CDT documented as of this encounter Care Teams Hone Operator Relationship Specialty Start Date End Date Center - [facility] [address] [place] [address] PCP - General Clinic 06/30/16 Masoud Marcano MD [address] [place] [address] PCP - Assigned PCP 11/30/17 07/24/18 Masoud Marcano MD [address] [place] [address] Assigned PCP 11/30/17 12/29/18 Isamar Dobbins APRN EDUCATION PROGRAM ASSOCIATE [address] [place] [address] Assigned PCP 12/30/18 03/16/19 Masoud Marcano MD [address] [place] [address] Assigned PCP 03/17/19 12/26/20 Isamar Dobbins APRN EDUCATION PROGRAM ASSOCIATE [address] [place] [address] Assigned PCP 12/27/20 03/20/21 documented as of this encounter
--- OUTSIDE RECORDS SUMMARY | 2024-11-13 13:43 | XMS_ITS | Encounter Summary ---
Author Organization [facility] Address [address] [place] [address]. [place] [address] Care Team Providers Care Manager Food Safety Name Role Phone [place] [facility] Medical Primary Care Provider Masoud Marcano MD Unavailable + [phone] Masoud Marcano MD Unavailable + [phone] Isamar Dobbins APRN TELETYPE TECHNICIAN Unavailable [phone] Masoud Marcano MD Unavailable + [phone] Isamar Dobbins APRN TELETYPE TECHNICIAN Unavailable + [phone] Encounter Details Date Type Department Care Team (Late st Contact Info) Description 03/07/2018 MyC Medical Advice [facility] e business specialist Clinic [place] [address] [facility] [place] [address] Trevor Leiva MD [address] [place] [address] Social History Tobacco Use Types Packs/Day Years Used Date Smoking Tobacco: Never Smokeless Tobacco: Never Alcohol Use Standard Drinks/Week Comments No 0 (1 standard drink = 0.6 oz pur e alcohol) PHQ-2 Answer Date Recorded PHQ-2 Score 0 02/09/2018 Comments No Sex and Gender Information Value Date Recorded Sex Assigned at Not on file Legal Sex Female 11:19 PM MARBLE INSTALLER Gender Identity Not on file Sexual Orientation Not on file documented as of this encounter Plan of Treatment Not on file documented as of this encounter Visit Diagnoses Not on filedocumented in this encounter Additional Health Concerns Assessment Noted Time PHQ-9 Depression Total Score: 0 01/03/20 17 10:31 AM CDT documented as of this encounter Care Teams Manager Food Safety Relationship Specialty Start Date End Date Center - [facility] [address] [place] [address] PCP - General Clinic 06/30/16 Masoud Marcano MD [address] [place] [address] PCP - Assigned PCP 11/30/17 07/24/18 Masoud Marcano MD [address] [place] [address] Assigned PCP 11/30/17 12/29/18 Isamar Dobbins APRN TELETYPE TECHNICIAN [address] [place] [address] Assigned PCP 12/30/18 03/16/19 Masoud Marcano MD [address] [place] [address] Assigned PCP 03/17/19 12/26/20 Isamar Dobbins APRN TELETYPE TECHNICIAN [address] [place] [address] Assigned PCP 12/27/20 03/20/21 documented as of this encounter
--- OUTSIDE RECORDS SUMMARY | 2024-11-13 13:43 | XMS_ITS | Encounter Summary ---
Author Organization [facility] Address [address] [place] [address]. [place] [address] Care Team Providers Care Transmission Calibration Engineer Name Role Phone [facility] Medical Primary Care Provider Masoud Marcano MD Unavailable + [phone] Isamar Dobbins APRN P 3 ARMAMENT/ORDNANCE IMA TECHNICIAN Unavailable + [phone] Masoud Marcano MD Unavailable + [phone] Isamar Dobbins APRN P 3 ARMAMENT/ORDNANCE IMA TECHNICIAN Unavailable + [phone] Encounter Details Date Type Department Care Team (Late st Contact Info) Description 08/02/2018 MyC Medical Advice [facility] [address] [place] [address] Lanny Narvaez, LEGAL RECOVERY SPECIALIST Social History Tobacco Use Types Packs/Day Years Used Date Smoking Tobacco: Never Smokeless Tobacco: Never Alcohol Use Standard Drinks/Week Comments No 0 (1 standard drink = 0.6 oz pur e alcohol) PHQ-2 Answer Date Recorded PHQ-2 Score 0 02/09/2018 Comments No Sex and Gender Information Value Date Recorded Sex Assigned at Not on file Legal Sex Female 11:19 PM STOKER MECHANIC Gender Identity Not on file Sexual Orientation Not on file documented as of this encounter Plan of Treatment Not on file documented as of this encounter Visit Diagnoses Not on filedocumented in this encounter Additional Health Concerns Assessment Noted Time PHQ-9 Depression Total Score: 0 01/03/20 17 10:31 AM CDT documented as of this encounter Care Teams Transmission Calibration Engineer Relationship Specialty Start Date End Date [facility] [address] [place] [address] PCP - General Clinic 06/30/16 Masoud Marcano MD [address] [place] [address] Assigned PCP 11/30/17 12/29/18 Isamar Dobbins APRN P 3 ARMAMENT/ORDNANCE IMA TECHNICIAN [address] [place] [address] Assigned PCP 12/30/18 03/16/19 Masoud Marcano MD [address] [place] [address] Assigned PCP 03/17/19 12/26/20 Isamar Dobbins APRN P 3 ARMAMENT/ORDNANCE IMA TECHNICIAN [address] [place] [address] Assigned PCP 12/27/20 03/20/21 documented as of this encounter
--- OUTSIDE RECORDS SUMMARY | 2024-11-13 13:43 | XMS_ITS | Encounter Summary ---
Author Organization [facility] Address [address] [place] [address]. [place] [address] Care Team Providers Care Director Housekeeping Name Role Phone [place] [facility] Primary Care Provider Masoud Marcano MD Unavailable + [phone] Masoud Marcano MD Unavailable + [phone] Isamar Dobbins APRN FABRIC WORKER LEADER Unavailable [phone] Masoud Marcano MD Unavailable + [phone] Isamar Dobbins APRN FABRIC WORKER LEADER Unavailable [phone] Encounter Details Date Type Department Care Team (Late st Contact Info) Description 05/30/2018 [facility] personal caregiver Clinic [place] [address] [facility] [place] [address] Yanique Linares MD [address] [place] [address] Social History Tobacco Use Types Packs/Day Years Used Date Smoking Tobacco: Never Smokeless Tobacco: Never Alcohol Use Standard Drinks/Week Comments No 0 (1 standard drink = 0.6 oz pur e alcohol) PHQ-2 Answer Date Recorded PHQ-2 Score 0 02/09/2018 Comments No Sex and Gender Information Value Date Recorded Sex Assigned at Not on file Legal Sex Female 11:19 PM TRANSPORTATION ECONOMICS TEACHER Gender Identity Not on file Sexual Orientation Not on file documented as of this encounter Plan of Treatment Not on file documented as of this encounter Visit Diagnoses Not on filedocumented in this encounter Additional Health Concerns Assessment Noted Time PHQ-9 Depression Total Score: 0 01/03/20 17 10:31 AM CDT documented as of this encounter Care Teams Director Housekeeping Relationship Specialty Start Date End Date Center - [facility] [address] [place] [address] PCP - General Clinic 06/30/16 Masoud Marcano MD [address] [place] [address] PCP - Assigned PCP 11/30/17 07/24/18 Masoud Marcano MD [address] [place] [address] Assigned PCP 11/30/17 12/29/18 Isamar Dobbins APRN FABRIC WORKER LEADER [address] [place] [address] Assigned PCP 12/30/18 03/16/19 Masoud Marcano MD [address] [place] [address] Assigned PCP 03/17/19 12/26/20 Isamar Dobbins APRN FABRIC WORKER LEADER [address] [place] [address] Assigned PCP 12/27/20 03/20/21 documented as of this encounter
--- OUTSIDE RECORDS SUMMARY | 2024-11-13 13:43 | XMS_ITS | Clinical Summary ---
Author Organization [facility] Address [address] [place] [id number] Care Team Providers Care Furnace Setter Name Role Phone Pcp, No Primary Care Provider Unavailabl e Allergies No known active allergies Medications oxyCODONE-acetam inophen (PERCOCET) 5-325 mg per tabletIndication s:Abscess of axilla, right Take 1-2 Tablets by mouth every 6 hours if needed for Pain Max acetaminophen dose: 4000mg in 24 hrs. 8 Tablet 07/28/19 21 Active levonorgestrel intrauterine device (MIRENA) 20 mcg/24 hours (6 yrs) 52 mg IUD Inserted 03/28/2018. 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[employer] Gender Identity Not on file Sexual Orientation Not on file Last Filed Vital Signs Vital Sign Reading Time Taken Comments Blood Pressure 153/92 04/01/2024 6: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 [employer] Pulse 92 04/01/2024 6: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 Temperature 36.7 C (98 F) 04/01/2024 6: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 Respiratory Rate 16 04/01/2024 6: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 [employer] Oxygen Saturation 100% 04/01/2024 6: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 [employer] Inhaled Oxygen Concentration - - Weight 95.3 kg (210 lb) 04/01/2024 6: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 Height 175.3 cm (5' 9) 04/01/2024 6: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 [employer] Body Mass Index 31.01 04/01/2024 6: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 [employer] Plan of Treatment Health Maintenance Due Date Last Done Comments Tdap 2001 Depression screening for age 12+ 2002 HIV for age 15-65 2005 BMI (ht and wt on same day) for age 18+ 2008 Hepatitis C screening for ag e 18-79 2008 Hepatitis B series for 19+ ( 1 of 3 - 19+ 3-dose series) 2009 Tetanus booster 2010 Pap test for age 21-65 11/18/2011 COVID-19 vaccine series ( season) 2024 06/01/2021, 10/05/2020, 09/02/2020 Influenza Vaccine (Season Ended) 2025 Pneumococcal series for age 6-49 Aged Out No longer eligible b ased on patient's age to complete this topic Insurance [facility] Care Teams Furnace Setter Relationship Specialty Start Date End Date Pcp, No . PCP - General 05/12/21
--- OUTSIDE RECORDS SUMMARY | 2024-11-13 13:43 | XMS_ITS | Encounter Summary ---
Author Organization [facility] Address [address] [place] [address]. [place] [address] Care Team Providers Care Mud Temperer Name Role Phone [facility] Primary Care Provider Masoud Marcano MD Unavailable [phone] Masoud Marcano MD Unavailable [phone] Isamar Dobbins APRN CLINICAL RESEARCH PHYSICIAN Unavailable [phone] Masoud Marcano MD Unavailable + [phone] Isamar Dobbins APRN CLINICAL RESEARCH PHYSICIAN Unavailable + [phone] Encounter Details Date Type Department Care Team (Late st Contact Info) Description 05/31/2018 MyC Medical Advice [facility] customer development manager [facility] [place] [address] [facility] [facility] [address] [place] [address] Jaqui Acosta MD [employer] [facility] LICENSE 06/2022 [facility]Patient [facility] Specialist, [id number] Social History Tobacco Use Types Packs/Day Years Used Date Smoking Tobacco: Never Smokeless Tobacco: Never Alcohol Use Standard Drinks/Week Comments No 0 (1 standard drink = 0.6 oz pur e alcohol) PHQ-2 Answer Date Recorded PHQ-2 Score 0 02/09/2018 Comments No Sex and Gender Information Value Date Recorded Sex Assigned at Not on file 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 Gender Identity Not on file Sexual Orientation Not on file documented as of this encounter Plan of Treatment Not on file documented as of this encounter Visit Diagnoses Not on filedocumented in this encounter Additional Health Concerns Assessment Noted Time PHQ-9 Depression Total Score: 0 01/03/20 17 10:31 AM CDT documented as of this encounter Care Teams Mud Temperer Relationship Specialty Start Date End Date Center - [facility] [address] [facility] [place] [address] PCP - General Clinic 06/30/16 Masoud Marcano MD [address] [place] [address] PCP - Assigned PCP 11/30/17 07/24/18 Masoud Marcano MD [address] [place] [address] Assigned PCP 11/30/17 12/29/18 Isamar Dobbins APRN CLINICAL RESEARCH PHYSICIAN [address] [place] [address] Assigned PCP 12/30/18 03/16/19 aMsoud Marcano MD [address] [place] [address] Assigned PCP 03/17/19 12/26/20 Isamar Dobbins APRN CLINICAL RESEARCH PHYSICIAN [address] [place] [address] Assigned PCP 12/27/20 03/20/21 documented as of this encounter
--- NOTE | 2024-11-13 14:14 | PC.OBNST ---
NST Note NST Note Start: 11/13/24 13:30 Freq: ONCE Status: Active Protocol: Document 11/13/24 14:12 EUNICE (Rec: 11/13/24 14:13 ANDRIY [id number]) NST Note 4 Para (# of births) 3 EDC 12/02/24 Gestational Age In 37 Weeks & 2 Days Weeks & Days Patient Presented Contractions/cramping with Complaint(s) of Reactive Yes Appropriate for Yes Gestational Age RN Joey James RN Date 11/13/24 Reactive Yes Appropriate for Yes Gestational Age ROGELIO Hayes RN Date 11/13/24 OB NST charge Yes Complete NST Note Yes via Write Note The provider's electronic signature indicates the NST is reactive/appropriate for gestational age. *Note to provider: If an addendum is required, open the patient's chart and click on the note under the Nurse/Allied Health tab.
== END 2024-11-13 14:08 | disposition home or self-care (01) ==
LOC: OB OUT 13:23 → OB 13:23
PROVIDERS: PCP Emergency Medicine; Visit Provider Advanced Practice Midwife
DX: O47.1 False labor at or after 37 completed weeks of gestation (principal); Z3A.37 37 weeks gestation of pregnancy
CPT/HCPCS: 59025; G0463

== ENCOUNTER 2024-11-20 10:35 | Outpatient (CLI) | payer MEDICAID, SELFPAY ==
[2024-11-20 10:44] VITALS: PULSE 83; O2SAT 98
[2024-11-20 10:49] VITALS: PULSE 82; O2SAT 98
[2024-11-20 10:52] VITALS: BP 128/76; PULSE 79
[2024-11-20 11:00] VITALS: RESP 16; TEMP 37
[2024-11-20 11:20] LABS: Amnisure Rom* Negative
--- NOTE | 2024-11-20 11:52 | PC.OBNST ---
NST Note NST Note Start: 11/20/24 10:45 Freq: ONCE Status: Active Protocol: Document 11/20/24 10:45 ABH (Rec: 11/20/24 11:52 ABH No Response) NST Note 4 Para (# of births) 3 EDC 12/02/24 Gestational Age In 38 Weeks & 2 Days Weeks & Days Patient Presented Contractions/cramping,Leaking fluid with Complaint(s) of Other Complaints Tightening, no pain with contractions Reactive Yes Appropriate for Yes Gestational Age ROGELIO Parrish RN Date 11/20/24 Reactive Yes Appropriate for Yes Gestational Age ROGELIO Shepherd CNM Date 11/20/24 OB NST charge Yes Complete NST Note Yes via Write Note The provider's electronic signature indicates the NST is reactive/appropriate for gestational age. *Note to provider: If an addendum is required, open the patient's chart and click on the note under the Nurse/Allied Health tab.
== END 2024-11-20 11:48 | disposition home or self-care (01) ==
LOC: OB OUT 10:36 → OB 10:37
PROVIDERS: PCP Emergency Medicine; Visit Provider Advanced Practice Midwife
DX: O47.1 False labor at or after 37 completed weeks of gestation (principal); Z3A.38 38 weeks gestation of pregnancy
CPT/HCPCS: 59025; 84112; G0463

== ENCOUNTER 2024-11-23 14:02 | Outpatient (CLI) | payer MEDICAID, SELFPAY ==
[2024-11-23 14:11] VITALS: PULSE 79; O2SAT 99
[2024-11-23 14:12] VITALS: BP 129/81; PULSE 83
--- NOTE | 2024-11-23 14:28 | PM.OBLDTN ---
OB - Triage/Final Diagnosis Visit Information Date Seen: 11/23/24 Narrative: Zulema is a 34 year old 4 para 3 at 38.5 weeks gestation by LMP, who presents with pelvic pressure and low back pain. She reports she is Ready for this baby and appears generally uncomfortable in bed. She denies contractions but reports worsening low back pain in the evenings. Discussed cervical exam now to evaluate status. She was agreeable and this was done with informed consent. Cervix is unchanged from previous checks . Discussed that her current gestation does not allow augmentation or induction of labor at this time. She could plan for an elective induction after 39 weeks which would be on Monday but the current induction schedule is full until MondayDecember 03, she was placed on the schedule for this day and will plan to go over consent at her next office visit which is in 3 days. She appears disappointed with not having any cervical change today. Encouraged to return if signs of labor or concerns for decreased FM. Evaluation Cervical dilation (cm): 4 Cervical effacement (%): 40 Vital signs: Vital Signs - 24 hr 11/23/24 14:11 11/23/24 14:12 Pulse Rate 83 Blood Pressure 129/81 Pulse Oximetry 99 Fetus (Single) Heart Rate Baseline: 125 Care Home Variability: Moderate (6-25) Monitor Accelerations: Present Monitor Decelerations: None Station: -3
--- NOTE | 2024-11-23 15:09 | PC.OBNST ---
NST Note NST Note Start: 11/23/24 14:12 Freq: ONCE Status: Active Protocol: Document 11/23/24 14:05 LEXXY (Rec: 11/23/24 15:09 CUANDRIYY [id number]) NST Note 4 Para (# of births) 3 EDC 12/02/24 Gestational Age In 38 Weeks & 5 Days Weeks & Days Patient Presented Contractions/cramping with Complaint(s) of Reactive Yes Appropriate for Yes Gestational Age RN Joey James RN Date 11/23/24 Reactive Yes Appropriate for Yes Gestational Age ROGLEIO De Jesus RN Date 11/23/24 OB NST charge Yes Complete NST Note Yes via Write Note The provider's electronic signature indicates the NST is reactive/appropriate for gestational age. *Note to provider: If an addendum is required, open the patient's chart and click on the note under the Nurse/Allied Health tab.
== END 2024-11-23 14:39 | disposition home or self-care (01) ==
LOC: OB OUT 14:03 → OB 14:05
PROVIDERS: PCP Emergency Medicine; Visit Provider Advanced Practice Midwife
DX: O47.1 False labor at or after 37 completed weeks of gestation (principal); Z3A.38 38 weeks gestation of pregnancy
CPT/HCPCS: 59025; G0463

== ENCOUNTER 2024-11-26 15:35 | Inpatient (IN) | payer MEDICAID, SELFPAY ==
[2024-11-26] VITALS (17 sets, daily range): BP systolic 114–131; BP diastolic 59–74; PULSE 68–103; RESP 16; TEMP 36.6–37; O2SAT 89–100; BMI 39.3
[2024-11-26 16:41] LABS: Hematocrit 29.3 % (33.0-51.0); Hemoglobin* 9.2 gm/dL (12.0-16.0); Immature Granulocytes Abs Auto 0.09 K/uL (0.00-0.30); Immature Granulocytes Pct Auto 1.5 %; Mean Corpuscular HGB Conc 31 gm/dL (32-36); Mean Corpuscular Hemoglobin 31 pg (26-34); Mean Corpuscular Volume 100 fL (80-100); RDW Coefficient of Variation % 15.3 % (11.5-15.5); Red Blood Count 2.94 m/uL (4.00-5.20); White Blood Count* 6.12 K/uL (4.50-11.00)
[2024-11-26 16:45] LABS: Lymphocytes Absolute Auto 1.00 K/uL (0.90-2.90); Slide Review Reflex No
[2024-11-26] MEDS: AMPICILLIN 2 GM in 0.9 % SODIUM CHLORIDE Mini-bag 100 ML IVPB (17:10)
--- NOTE | 2024-11-26 18:06 | P.LDBA_ITS ---
Subjective History of Present Illness Date Seen: 11/26/24 Narrative: Zulema is being admitted to Labor and Delivery for SROM confirmed by AmniSure in clinic, she is unsure of date as she has had vaginal discharge for the last few weeks and has not noted any increase. She was checked for ROM in clinic since she has continued to leak fluid, previous AmniSure's have been negative. She is a 34 year old at 39.1 weeks gestation. Her full history and physical was dictated by Gabriel Magallon CNM on 11/12/24. Please see this for details. Specific Issues/Plans G 4 P 3003 : Yang Needs IOL consent, she is on calendar for 12/03 at 0730 elective IOL Transfer from [facility] at 17.4 weeks H&P Completed 11/12/2024 by CARIE Esquivel #GBS positive Plans antibiotics in labor #Measuring large for dates follow up US at 28 weeks- EFW >97% # History of in 2011 d/t nuchal cord with successful in 2016. Planning TOLAC. TOLAC consent completed 10/[address] Espinoza Growth 36 weeks: 89% # hemorrhage after baby #3, resolved with IV pit, IM Methergine, Cytotec ME and manual sweep. QBL 795cc. # Class 2 Obesity. BMI: 38.54 A1C 4.6 Low dose aspirin now weekly testing starting at 37 weeks growth US every 4 weeks starting at 28weeks-form filled out 09/11/24Obesity, Pre- BMI 35-39.9?Delivery recommended: elective delivery considered at >39 0/7 weeks.? # Asthma exacerbation at 23 weeks f/u with primary care at 24 wks # Posterior intramural fibroid # Anemia. Hgb 9.9 at first OB. Normal Hgb electrophoresis. On iron supplement. 09/11/24: Enc to change to every other day. 09/11: hgb today 8.2. Iron infusions consented. Process initiated to start. 09/24: Completed iron transfusion 10/22: Hgb 8.9, increasing; Ferritin 121; recommend restarting oral iron Pap: ASCUS, HPV neg pap 10/20/2023, follow-up in 3 years Flu: declines Covid: declines IMAGINst trimester: 04/26/24: single IUP with cardiac activity with EGA 9w1d. 2.7cm posterior intramural fibroid Anatomy scan (07/18/2024): IMPRESSION: 1. Sonographic gestational age 22 weeks 0 days and sonographic due date 11/21/2024. Sonographic age 11 days ahead of the clinical age. 2. Estimated weight greater than 97th percentile. Abdominal circumference 76 percent. Biparietal diameter greater than 97th percentile. 3. Incomplete visualization of the cervical spine, umbilical cord and urinary bladder. Remainder of the anatomic survey is normal given limitations of position. Short-term follow-up recommended in 1-2 weeks. Others: Follow-up (08/01/2024): IMPRESSION: Normal three-vessel cord, bladder, and spine. In conjunction with the prior study, the anatomic survey is normal. Growth US (09/12/2024): IMPRESSION: 1. Sonographic gestational age 31 weeks 1 day and sonographic due date 11/13/2024. Sonographic age is 19 days ahead of the clinical age. 2. Estimated weight greater than 97th percentile. Biparietal diameter, head circumference, and abdominal circumference all greater than 97th percentile. Growth US (10/08/2024): IMPRESSION: 1.Sonographic gestational age 34 weeks 0 days and sonographic due date 11/19/2024. Sonographic age is 13 days ahead of the clinical age. 2.Estimated weight is 75th percentile. Abdominal circumference is 58th percentile. BPD is greater than 97th percentile. 3.Right renal pelvis measures 5 mm and left renal pelvis measures 2 mm, considered within normal limits. Growth US (11/05/2024): IMPRESSION: 1. Sonographic gestational age 37 weeks 6 days and sonographic due date 11/20/2024. Sonographic age 12 days ahead of the clinical age. 2. Estimated weight 89th percentile. Abdominal circumference greater than 97th percentile. Transfer labs: 04/26/24: blood type O positive. Antibody screen negative. Hemoglobin 9.9. Platelet 313. TPPA neg, HBsAG neg, HIV neg, chlamydia/gonorrhea both neg, Hep C neg. Urine culture <40548 cfu/mL mixed bacteria. hgb A1C 4.6. Pap 10/20/23: ASCUS neg HPV. 04/26/24: single IUP with cardiac activity with EGA 9w1d. 2.7cm posterior intramural fibroid OB - Problem Based A/P Additional Plan (1) SROM (spontaneous rupture of membranes): Status: Acute (2) 39 weeks gestation of : Status: Acute (3) Encounter for trial of labor: Status: Acute (4) History of section, low transverse: Problem details: due to nuchal cord Status: Acute Plan Assessment:?? at 39.1 weeks gestation?? GBS positive, started treatment with antibiotics? Patient is coping well with challenges of labor.?? Labor type: Spontaneous, Early labor? Category 1 FHR pattern.? complicated by: Hx of C/S planning TOLAC (TOLAC consent completed 10/[address] Espinoza), has had one successful prior to this , GBS +, Anemia, Asthma with exacerbation this , Class 2 Obesity, Hx of PPH, Measuring large for dates last growth 89%ile. Plan:?? * ?Admit to L & D? * IV access: SL for antibiotic treatment * Monitoring per policy: continuous? * Candidate for analgesia of choice.? Planning unmedicated for pain management * Expectant management at this time, consider augmentation once 3+ hours of treatment for GBS completed * GBS prophylaxis initiated for GBS positive status. Will treat with antibiotics per protocol.? * Patient encouraged to reposition and ambulate to promote physiologic labor and . * Anticipate ? Delivery/Labor/Induction Plan Plan: expectant management OB Exam Physical Exam Vital signs: Pulse BP Pulse Ox 81 125/74 97 11/26/24 15:48 11/26/24 15:48 11/26/24 15:47 Narrative: Vitals Reviewed Constitutional:? Alert and oriented x3 HEENT:? Normocephalic, atraumatic Neck:? Supple Lungs:? Clear to auscultation bilaterally Heart:? Regular rate and rhythm, no murmur, rub or gallop Abdomen:? Soft, nontender, and gravid. Vertex by Fuentes's. Extremities:? No edema or erythema Cervix: 4.5cm/80%/-2 station/vertex by CNM in clinic today NST: 125 bpm/moderate variability/+accelerations/-decelerations/mild contractions now more regular in frequency Detailed Labor and Delivery Exam Patient Gravid: yes
--- NOTE | 2024-11-26 20:11 | PM.OBPNL ---
Subjective Date Seen: 11/26/24 Narrative: ?Nitish is coping well with labor pain/contractions. ?Yang is with her for support. ?She is using repositioning and relaxation for comfort and pain management.?She reports feeling contractions which appear to be every 3-5 minujtes on the EFM. Discussed AROM of forebag at this time with the option to add IV Pitocin per protocol for augmentation. Zulema desires both as she is eager to deliver soon. Objective Exam: VSS, afebrile General Appearance:? Calm, cooperative. ?No acute distress. ? Psychiatric Exam: Alert and oriented, appropriate affect Abdomen: Gravid Ctx: ?Q 2-4 min apart. ?Mild ? FHTs: ?Baseline: 130. ? ? Variability: moderate. ?Accels: +. ? ?Decels: ?-. SVE: /-2 Membranes: ?SROM for unknown amount of time, AROM of forebag small amount of clear fluid Vital Signs: Last Vital Signs Temp 98.6 F 11/26/24 19:22 Pulse 80 11/26/24 19:22 BP 120/71 11/26/24 19:22 Pulse Ox 99 11/26/24 19:22 Contractions Monitor mode: External Contraction pattern: Regular Contraction intensity: Mild Assessment Assessment: early labor Plan Plan: Assessment:?? at 39.1 weeks gestation?? GBS positive Patient is coping well with challenges of labor.?? Labor type: Augmented, Early labor? Category 1 FHR pattern.? complicated by: Hx of C/S planning TOLAC (TOLAC consent completed 10/[address] Espinoza), has had one successful prior to this , GBS +, Anemia, Asthma with exacerbation this , Class 2 Obesity, Hx of PPH, Measuring large for dates last growth 89%ile. Labor complicated by: SROM for unknown length of time, multiple AmniSure negative until today but reports leaking for multiple days with prodromal labor? Plan:?? AROM of forebag IV Pitocin per protocol, low dose Antibiotic prophylaxis treatment per protocol Continue with routine intrapartum cares as ordered.?? Patient encouraged to move and change positions to promote physiologic labor and .?? Nonpharmacologic comfort measures per patient preference. Candidate for analgesia of choice if desired, planning unmedicated . Anticipate progress to NVD. ?
[2024-11-26] MEDS: OXYTOCIN 30 unit/500 ML in NS 30 UNIT/500 ML BAG IVPB (20:32)
[2024-11-26] MEDS: AMPICILLIN 1 GM in 0.9 % SODIUM CHLORIDE Mini-bag 100 ML IVPB (21:04)
[2024-11-26] MEDS: FERROUS SULFATE 325 MG TABLET PO (21:33)
--- NOTE | 2024-11-26 22:43 | PM.OBPNL ---
Subjective Time Seen by Provider: 22:43 Date Seen: 11/26/24 Narrative: Zulema is uncomfortable with her contractions and now complaining of pressure. Yang is here with her as support. On exam she is 8 cm, 90%, 0 station. Objective Exam: VSS, afebrile General Appearance:? Calm, cooperative. ?No acute distress. ? Psychiatric Exam: Alert and oriented, appropriate affect Abdomen: Gravid Ctx: ?Q 2-3 min apart. ? ? ?Strong FHTs: ?Baseline: 135. ? ? Variability: moderate. ?Accels: +. ? ?Decels: ?-. SVE: /0 Membranes: ?SROM with AROM of forebag, clear fluid Vital Signs: Last Vital Signs Temp 98 F 11/26/24 21:36 Pulse 68 11/26/24 22:35 BP 114/59 L 11/26/24 22:35 Pulse Ox 99 11/26/24 19:22 Contractions Monitor mode: External Contraction pattern: Regular Contraction intensity: Mild Pitocin Rate (mU/min): 2 Plan Plan: Assessment:?? at 39.1 weeks gestation?? GBS postive, adequately treated Patient is coping well with challenges of labor.?? Labor type: Augmented, Active labor? Category 1 FHR pattern.? complicated by: Hx of C/S planning TOLAC (TOLAC consent completed 10/[address] Espinoza), has had one successful prior to this , GBS +, Anemia, Asthma with exacerbation this , Class 2 Obesity, Hx of PPH, Measuring large for dates last growth 89%ile. Labor complicated by: SROM for unknown length of time, multiple AmniSure negative until today but reports leaking for multiple days with prodromal labor? Plan:?? Antibiotic prophylaxis treatment per protocol Continue with routine intrapartum cares as ordered.??Augmentation per pitocin protocol. Patient encouraged to move and change positions to promote physiologic labor and .?? Nonpharmacologic comfort measures per patient preference. Candidate for analgesia of choice if desired. Anticipate progress to NVD. ?
[2024-11-26] MEDS: miSOPROStoL 800 MCG/4 TABLET PR (23:59)
[2024-11-27] VITALS (54 sets, daily range): BP systolic 99–128; BP diastolic 59–81; PULSE 68–118; RESP 16–24; TEMP 36.4–37.6; O2SAT 89–100
[2024-11-27] MEDS: TRANEXAMIC ACID 100 MG/ML INJ 1000 MG IV (00:10)
[2024-11-27] MEDS: METHYLERGONOVINE MALEATE 0.2 MG/ML INJ IM (00:34)
--- NOTE | 2024-11-27 00:58 | W.PM.VAGDE_ITS ---
OB Procedure Vag Delivery Mother Details Mother Details: The patient is a 34 year-old, 4, Para 3, admitted on 11/26/24 at 39.1 weeks gestation. : 4 Para: 4 Weeks Gestation: 39.1 Admission Date: 11/26/24 Additional Details Amniotic Membrane Status: SROM (unknown date or time) Amniotic Membrane Fluid Description: Clear Analgesia/Anesthesia Type: None Waterbirth: No Pitcoin: Yes Intrapartal Events: Labor Augmentation Delivery augmentation: rupture of membranes and pitocin Labor Onset: 21:45 Complete: 23:42 Pushin:42 Heart: heart tones during second stage were continuously monitored Category II, variable decelerations with pushing immediate return to baseline, moderate variability. Delivery Details Delivery Date: 11/26/24 Delivery Time: 23:47 Route of delivery: Infant Gender: Male Infant Viability: Alive; Heart Rate Present Position at Delivery: OA Delivery Details: 34?y.o?at 39.1 weeks.? Zulema was admitted with SROM of unknown date or time diagnosed by positive AmniSure in clinic today. She reported she had been leaking fluid for a few weeks and had been tested for rupture prior and had negative results last on 11/20/24. On admission she was michael irregularly, IV antibiotics were started for positive GBS status. When she reached approximately 3 hours after first dose of antibiotics, AROM of forebag and IV Pitocin was started per protocol. She began to feel more uncomfortable and having more pressure with contractions around 2230. Shortly after she felt like pushing and attempted pushing for approximately 4 contractions without any progress. An exam at that time found her to be 8 cm with anterior cervix so she was assisted to hands and knees. She then was turned back to her side and cervical exam then found her complete at +1 station. ? ? She became complete at 2342.??She pushed in semi-reclined position effectively.??? On delivery of the head she was directed to stop pushing to allow restitution of body, she then attempted to push again but baby had not fully turned. She waited one more breath then pushed and body delivered without incident. ? Spontaneous vaginal delivery at 2347 of?a viable?male infant.??Delivered in vertex OA position.??Shoulders delivered easily.? Spontaneous cry noted.?? placed on maternal abdomen.??Cord?was clamped and cut after a 5+ minute delay.??Nose and mouth were bulb suctioned.? Shoulder dystocia: no? Nuchal cord: no? Meconium stained?fluid: noted at time of delivery? Water : no? ? ? 8 at 1 minute and 9 at 5 minutes.? Weight is 8lbs 6oz. ? Placenta delivered spontaneously and?complete?at 2356 with a?3 vessel?cord.?? Bleeding was heavy immediately after delivery of placenta, fundal massage, IV Pitocin, rectal Cytotec 800mcg given, her bladder was emptied by straight cath. Bleeding continued to be heavy, TXA was started and she was given 100mcg of Fentanyl for pain and a manual sweep was done for large amount of clots. Bleeding slowed for a short time then returned although fundus was firm to palpation. A Umm was prepared and a sweep was done just prior to attempting to place, additional clots removed. Umm was not able to be placed as uterus was clamped down. Dr Gordon was called to bedside in case there was need for surgical intervention on her arrival bleeding had slowed and she did a quick internal exam. [place] the uterus was well contracted and no further heavy bleeding was observed. Coagulation labs and CBC were ordered. Recommended Zulema receive 1 unit of PRBC due to her starting Hgb of 9.2 and her QBL of 1800ml. Zulema was agreeable to blood transfusion. ? Lacerations:? 2nd degree, repaired with 3-0?vicryl.?? ? Bleeding?post delivery?was: heavy. ?The fundus was firm to palpation.? Blood loss: 1800?mL.? Blood loss measurement type: QBL? ? ? Sponge,?lap?and needles counts are correct.? Mother and infant were stable after delivery.? 1 Minute Interval Total Score: 8 5 Minute Interval Total Score: 9 Additional Details Shoulder Dystocia: No Placenta Delivery Time: 23:56 Placental Delivery Description: Spontaneous Delivery repair: Vicryl Procedure Done: Global Blood Loss: 1,800 Laceration: Perineal - 2nd Degree Blood Loss Measurement Type: QBL Bakri Used: No Sponge/Need Count Correct: Yes Cord Vessel Description: 3 Vessels Event Summary Status: Mother and infant were stable after delivery. Disposition: floor
[2024-11-27 01:55] LABS: Hematocrit 27.6 % (33.0-51.0); Hemoglobin* 8.7 gm/dL (12.0-16.0); Immature Granulocytes Pct Auto 0.3 %; Mean Corpuscular HGB Conc 32 gm/dL (32-36); Mean Corpuscular Hemoglobin 32 pg (26-34); Mean Corpuscular Volume 101 fL (80-100); RDW Coefficient of Variation % 15.4 % (11.5-15.5); Red Blood Count 2.74 m/uL (4.00-5.20); White Blood Count* 15.03 K/uL (4.50-11.00)
[2024-11-27 01:57] LABS: Immature Granulocytes Abs Auto 0.00 K/uL (0.00-0.30); Lymphocytes Absolute Auto 0.50 K/uL (0.90-2.90); Slide Review Reflex No
[2024-11-27] MEDS: CEFAZOLIN 1 GM in 0.9 % SODIUM CHLORIDE Mini-bag 100 ML IVPB (02:12)
[2024-11-27 02:17] LABS: INR 1.04 (0.91-1.10); Prothrombin Time 14.4 Seconds
[2024-11-27] MEDS: IBUPROFEN 600 MG TABLET PO ×3 (04:22→18:22)
--- NOTE | 2024-11-27 07:51 | PM.OBPNVD1 ---
OB - PN:Subj Subjective Date Seen: 11/27/24 Patient comments OB post-: pain well controlled, tolerating diet and flatus present infant status: and doing well [place] feeding status: breast and bottle feeding Narrative: Complications:? PPH of 1800. Received 1 unit RBCs.? Zulema feels well.? Her pain is well controlled with current medications.? She has no new complaints.? Urinary output is adequate and she is voiding without difficulty.? Has a good appetite, is tolerating a general diet and is not yet passing flatus. Will try ambulation later this morning and notify the RN if not passing flatus by this evening.? Has small amount of rubra lochia. She denies feeling light headed, fatigued, or dizzy? She is ambulating well but has not been up since the transfusion.?She is planning on breast and bottle feeding and denies cocnerns with how either is going so far. OB - PN: Obj Exam Physical Exam: Vital signs: Temp Pulse Resp BP Pulse Ox O2 Del Method 98.5 F 73 18 115/72 100 Room Air 11/27/24 07:27 11/27/24 07:27 11/27/24 07:27 11/27/24 07:27 11/27/24 07:27 11/27/24 06:38 Narrative: GENERAL APPEARANCE:? normal affect, alert, no distress? MOOD:? appropriate? CHEST:? clear to auscultation and percussion? HEART:? regular rate and rhythm? ABDOMEN:? soft, non-tender the uterine fundus is U/1 and is appropriate for the stage of recovery.? PERINEUM:? mild edema of the perineum, there is a 2nd degree laceration that is healing well.? EXTREMITIES:? normal and no edema? OB - PN: Obj Data Labs Labs: Laboratory Results - last 24 hr 11/26/24 11/27/24 16:22 01:45 WBC 6.12 15.03 H RBC 2.94 L 2.74 L Hgb 9.2 L 8.7 L Hct 29.3 L 27.6 L MCV 100 101 H MCH 31 32 MCHC 31 L 32 RDW Coeff of Michele 15.3 15.4 Plt Count 259 250 Neut % (Auto) 71.6 90.1 H Lymph % (Auto) 16.8 L 3.6 L [place] % (Auto) 9.0 5.7 Eos % (Auto) 0.8 0.1 Baso % (Auto) 0.3 0.2 Neut # (Auto) 4.38 13.50 H Lymph # (Auto) 1.00 0.50 L [place] # (Auto) 0.60 0.90 Eos # (Auto) 0.05 0.00 Baso # (Auto) 0.02 0.00 Abs Immat Gran (auto) 0.09 0.00 Imm/Tot Granulo (auto) 1.5 0.3 INR 1.04 APTT 32 Fibrinogen 507 H Blood Type O Positive Antibody Screen NEGATIVE Crossmatch (AHG) See Detail OB - PN: A/P Delivery Assessment and Plan (1) History of section, low transverse: Problem details: due to nuchal cord Status: Acute (2) , delivered, current hospitalization: Status: Acute (3) Lactating mother: Status: Acute (4) Asthma with acute exacerbation: Status: Acute (5) PPH ( hemorrhage): Status: Acute Assessment and Plan: Received 1 unit RBCs Plan day: 1 Plan: routine care Comments: Recheck Hgb tomorrow morning. Anticipate discharge home tomorrow.
[2024-11-27] MEDS: ACETAMINOPHEN 500 MG TABLET 1000 MG PO ×3 (07:53→20:16)
[2024-11-27] MEDS: FERROUS SULFATE 325 MG TABLET PO ×2 (07:54→20:16)
[2024-11-27] MEDS: DOCUSATE SODIUM 100 MG CAPSULE PO (07:54)
[2024-11-28 00:40] VITALS: BP 103/59; PULSE 80; RESP 16; TEMP 36.8; O2SAT 97
[2024-11-28 06:39] LABS: Hemoglobin* 7.7 gm/dL (12.0-16.0)
[2024-11-28 08:15] VITALS: BP 122/74; PULSE 78; RESP 16; TEMP 36.8; O2SAT 97
--- NOTE | 2024-11-28 08:19 | P.DS_ITS ---
DS: Providers Provider Date Seen: 11/28/24 Date of admission: 11/26/24 15:35 Primary care physician: Michaelle Lubin Admitting Clinician: Virginia Marie CNM Attending Physician on discharge: Megan Magallon CNM DS: Diagnosis Discharge Diagnosis (1) , delivered, current hospitalization: Status: Acute (2) Lactating mother: Status: Acute (3) PPH ( hemorrhage): Status: Acute Problem details: s/p 1u pRBCs (4) Anemia due to acute blood loss: Status: Acute (5) care and examination immediately after delivery: Status: Acute Exam Const: Vital Signs, click to edit/add: Vital Signs - 24 hr 11/27/24 11:30 11/27/24 16:03 11/27/24 20:41 Temperature 98.1 F 98.6 F 97.6 F Pulse Rate [Pulse Oximeter] 72 78 69 Respiratory Rate 16 16 16 Blood Pressure [Le ft Arm] 115/71 99/61 105/67 Pulse Oximetry 99 97 97 Oxygen Delivery Me thod Room Air Room Air Room Air 11/28/24 00:40 Temperature 98.3 F Pulse Rate [Pulse Oximeter] 80 Respiratory Rate 16 Blood Pressure [Le ft Arm] 103/59 L Pulse Oximetry 97 Oxygen Delivery Me thod Room Air OB - DS: Summary Hospital Course Hospital Course: Renata is a 34 y.o. G 4 P 4 who was admitted to [facility] for spontaneous onset of labor. ?She had a that was complicated by PPH of 1800 ml. The patient feels well. ?The pain is well controlled with current medications. ?She has no new complaints. She received 1 unit of RBC?She is breast feeding and reports things are going well. the patient has done well.? Vitals have been stable.? She has remained afebrile.? Has a good appetite, is tolerating a general diet. ?She is voiding without difficulty.? She is passing gas and has not had a bowel movement.? She is ambulating and denies any dizziness.? Has small amount of rubra lochia. Problems: Anemia Discharge home with baby.? Follow up in 2 weeks and 6 weeks.? , may see if needed? Hgb 7.7. Iron supplement ordered orally every other day?? For pain control of perineum, breast and pelvic pain, take 600 mg Ibuprofen every 6 hours as needed by mouth or 1000 mg acetaminophen (Tylenol) every 6 hours by mouth as needed. You can alternate these so you are taking something every 3 hours as needed. A heating pad can also be used for your abdomen or breasts. You may also take docusate sodium up to twice daily to soften your stools and help to prevent constipation. You may wean off of it when your stools return to normal.? [place] Infant Gender: Male Time Spent with Patient Time attestation: Total time spent providing and/or coordinating discharge services: Discharge Plan Discharge Disposition: Home, Self-Care Date of Admission: 11/26/24 15:35 Attending Provider on Discharge: Megan Magallon Primary Care Provider: Michaelle Lubin Condition: Stable Anticipated Discharge Date/Time: 11/28/24 12:00 Discharge Medications: New acetaminophen 500 mg Tablet 1,000 mg PO Q6H PRNQty: 0 0RF docusate sodium 100 mg Capsule 100 mg PO DAILY Qty: 90 0RF ibuprofen 600 mg Tablet 600 mg PO Q6H PRNQty: 60 0RF Continued Multi-DHA(with vit K) 27 mg iron-800 mcg-260 mg capsule 1 cap PO DAILY albuterol sulfate 2.5 mg /3 mL (0.083 %) solution for nebulization 2.5 mg inhalation Q4-6H PRN (Reason: shortness of breath or wheezing) Qty: 75 1RF ferrous sulfate [Iron (ferrous sulfate)] 325 mg (65 mg iron) tablet 325 mg PO BID Qty: 90 0RF albuterol sulfate [Ventolin HFA] 90 mcg/actuation HFA aerosol inhaler 2 puff PO Q6H PRN (Reason: for wheezing) Qty: 18 3RF Discontinued aspirin [Adult Aspirin Regimen] 81 mg tablet,delayed release (DR/EC) 81 mg PO QDAY Discharge Orders: Discharge Order (Routine); Ordered 11/28/24 Ordered By: Megan Magallon Patient Education: OB Over the Counter Medication Information, OB Vaginal/Bottle Feeding, OB Vaginal/Breast Feeding Additional Instructions: Discharge instructions were reviewed with the patient including signs and symptoms of infection and home going medications Nothing vaginally for 6 weeks: no tampons or intercourse Do not drive while taking narcotic pain medication(s) Off Work or School for 6 weeks 2-week visit: discuss infant feeding concerns, review control options and screen for anxiety/depression. 6-week visit for an annual exam. consultation services are available to all mothers and babies for the first year after delivery.? To make an appointment, please call [phone]. Activity Level: Activity as Tolerated Discharge Diet: Regular Follow Up Appointments: [facility] [Provider Group] Forms: [facility] Info Instructions
[2024-11-28] MEDS: ALBUTEROL INHALER 2 PUFF IH (10:18)
== END 2024-11-28 11:05 | disposition home or self-care (01) | DRG 806 ==
LOC: OB OUT 18:01 → OB 19:22
PROVIDERS: Admitting Provider Advanced Practice Midwife; PCP Emergency Medicine; Visit Provider Advanced Practice Midwife
DX: O34.211 Maternal care for low transverse scar from previous cesarean delivery (principal); D62 Acute posthemorrhagic anemia; Z37.0 Single live birth; O72.1 Other immediate postpartum hemorrhage; J45.901 Unspecified asthma with (acute) exacerbation; O42.92 Full-term premature rupture of membranes, unspecified as to length of time between rupture and onset of labor; O90.81 Anemia of the puerperium; O70.1 Second degree perineal laceration during delivery; O36.63X0 Maternal care for excessive fetal growth, third trimester, not applicable or unspecified; O99.824 Streptococcus B carrier state complicating childbirth; O99.214 Obesity complicating childbirth; E66.812 Obesity, class 2; E66.9 Obesity, unspecified; Z3A.39 39 weeks gestation of pregnancy
CPT/HCPCS: 36415; 36430; 85018; 85025; 85384; 85610; 85730; 86592; 86850; 86900; 86901; 86922; G0463; A9270; J0290; J0690; J2210; J3010; P9016

== ENCOUNTER 2025-01-15 16:01 | Outpatient (CLI) | payer MEDICAID, SELFPAY ==
[2025-01-18 03:38] LABS: HPV Source Cervical
[2025-01-23 07:57] LABS: Pap Test Digital Imaging Done
== END 2025-01-15 16:02 | disposition home or self-care (01) ==
PROVIDERS: Visit Provider Advanced Practice Midwife
DX: D62 Acute posthemorrhagic anemia (principal); Z11.51 Encounter for screening for human papillomavirus (HPV); Z12.4 Encounter for screening for malignant neoplasm of cervix
CPT/HCPCS: 82728; 87624; 87625; 88141; 88142; 88175